=== PATIENT | female | born 1995 | race African-American/Black ===

== ENCOUNTER 2017-08-11 11:16 | Emergency (ER) | payer SELFPAY ==
[~2017-08-11] VITALS: Wt 81.8 kg
--- NOTE | 2017-08-11 12:20 | ERD ---
ER Documentation Chief Complaint Chief Complaint r. hand pain s/p trauma HPI 22y/o female patient, right-handed with no significant medical history, presents to the emergency department c/o Rt hand pain after direct trauma with a machine at work, the event occurred 2 days ago. The pain is sharp, 6/10. No radiation. Aggravating factors: Direct pressure. Alleviating factors: Unknown deformity, edema. Denies, numbness, tingling. No fever, chills, N/V/D. No history of previous episodes. Treatment attempted: None. Previous evaluation: None. History was given by patient ROS SYSTEMIC symptoms: no fever, chills, no night sweats, no weight loss EYE symptoms: No blurred vision, no eye discharge OTOLARYNGEAL symptoms: No hearing loss. No ear pain, no sore throat CARDIOVASCULAR symptoms: No chest pain or discomfort, no palpitations. PULMONARY symptoms: No dyspnea, no cough, no wheezing. GASTROINTESTINAL symptoms: No abdominal pain, no nausea, no vomiting, no diarrhea MUSCULOSKELETAL symptoms: Per HPI NEUROLOGY symptoms: No confusion, no syncope, no numbness or tingling. SKIN: No rashes Medications Home Meds Active Scripts Ibuprofen* (Motrin*) 600 Mg Tab, 600 MG PO Q8, #30 TAB Prov:MENDY BARKLEY MD 08/11/17 PMhx/Soc Hx Alcohol Use: No Hx Substance Use: No Hx Tobacco Use: No Smoking Status: Never smoker FmHx No family history of diabetes, cancer, hypertension. Physical Exam Vitals Vital Signs Date Time Temp Pulse Resp B/P Pulse Ox O2 Delivery O2 Flow Rate FiO2 08/11/17 11:18 98.0 91 20 128/71 100 Physical Exam Patient is in no acute distress, vital signs stable. Alert and fully oriented. EYES: PERRLA, EOMI, Sclera and conjunctiva appear normal. EARS: Canals clear, tympanic membranes WNL THROAT: Normal oropharynx. NECK: Supple, No lymphadenopathy. Full ROM without pain or tenderness. HEART: RRR, no rubs, murmurs, clicks or gallops. LUNGS: Clear to auscultation. ABDOMEN: Soft, non-tender without masses or hepatosplenomegaly. EXTREMITIES: Right hand: Tenderness to palpation on the dorsum of the hand, with mild ecchymosis and edema. Full range of motion, neurovascular exam Results 24 hrs [place] [id number] [place] [id number] Radiology Main Line: [phone] DIAGNOSTIC IMAGING REPORT Patient: WERNER DAMON : 1995 Age: 22 Sex: F MR #: [id number] DOS: 08/11/17 1147 Ordering MD: MENDY BARKLEY MD Location: [facility] Room/Bed: PROCEDURE: XR Hand. CLINICAL INDICATION: Right hand pain TECHNIQUE: 3 views of the right hand were obtained. COMPARISON: No prior studies are available for comparison. FINDINGS: There is no acute fracture. Alignment is normal. Joint spaces are preserved. Soft tissues are grossly unremarkable. IMPRESSION: 1. No radiographic evidence of acute osseous abnormality of the right hand. RPTAT: UU .Martin Castano MD, MD Date Time Electronically viewed and signed by .Martin Castano MD, MD on 08/11/2017 12: 29 .K/ CC: MENDY BARKLEY MD Procedures/MDM 22y/o female patient previously healthy, presents to the ED c/o right hand pain for 2 days. Vital signs stable, Physical exam unremarkable, right hand showed mild edema, ecchymosis and tenderness over the metacarpal area. Differential diagnosis include but not limited to: Contusion, fracture, dislocation. Pertinent Data: Radiology: I .MPRESSION: 1. No radiographic evidence of acute osseous abnormality of the right hand. Physical examination and clinical presentation consistent most likely with right and contusion. During the ED course the patient remained stable, no new complaints. Results and clinical impression discussed with patient who agrees with management. The patient is stable to be treated outpatient and will be discharged home with a Rx for ibuprofen 600 as needed for pain Side effects of prescribed NSAID medication (GI distress, edema, bleeding, HTN) were reviewed. The patient was instructed to follow up with the primary care provider in the next 48h. If symptoms persist, worsen or new symptoms develop, then patient should return to the ED immediately. Instructions explained and given to patient in [place]ian with acknowledgment and demonstrated understanding. Disclaimer: Inadvertent spelling and grammatical errors are likely due to EHR/ dictation software use and do not reflect on the overall quality of patient care. Also, please note that the electronic time recorded on this note does not necessarily reflect the actual time of the patient encounter. Departure Condition: Stable Additional Instructions: Call your primary care doctor TOMORROW for an appointment during the next 1-2 days. See the doctor sooner or return here if your condition worsens before your appointment time. Thank you very much for allowing us to participate in your care. Your health and safety is our top priority at [facility]. Have prescriptions filled and follow precisely the directions on the label. Follow-up with primary care provider during the next 4 days and bring all the information and medications prescribed. If illness has not improved in 2 days, then make an appointment with primary care provider. If the provider is unavailable, return to the Emergency Department immediately. MENDY BARKLEY MD Aug 11, 2017 12:20
[2017-08-11] MEDS ORDERED: IBUP-1542 PO (12:21)
--- NOTE | 2017-08-11 12:30 | RADRPT ---
PROCEDURE: XR Hand. CLINICAL INDICATION: Right hand pain TECHNIQUE: 3 views of the right hand were obtained. COMPARISON: No prior studies are available for comparison. FINDINGS: There is no acute fracture. Alignment is normal. Joint spaces are preserved. Soft tissues are grossly unremarkable. IMPRESSION: 1. No radiographic evidence of acute osseous abnormality of the right hand. RPTAT: UU .Martin Castano MD, MD Date Time Electronically viewed and signed by .Martin Castano MD, on 08/11/2017 12:29 .K/
== END 2017-08-11 13:00 | disposition home or self-care (01) ==
LOC: FTE 11:16
DX: M79.641 Pain in right hand (principal)
CPT/HCPCS: 73120